=== PATIENT | male | born 1950 | race Caucasian/White ===

== ENCOUNTER → 2021-02-25 | Outpatient (CLI) | payer BC ==
[~2021-02-25] MED LIST: ADVIL200 MG PO; CEPHALEXIN500 M1 PO; MULTI VITAMINS1 TAB PO; MVI PO; NO HOME MEDICATIONS; PERCOCET 325 MG1 TA2 PO; PROSCAR 5MG5 MG PO; SAW PALMETTO; ULTRAM 50MG TAB50 MG PO
== END ==
LOC: ZCOL.LAB 17:01
DX: J34.89 Other specified disorders of nose and nasal sinuses (principal)

== ENCOUNTER → 2021-05-24 | Outpatient (CLI) | payer BC | LOC: COL.VAS 11:54 | DX: I08.0 Rheumatic disorders of both mitral and aortic valves (principal) ==

== ENCOUNTER 2023-11-29 09:20 | Emergency (ER) | payer MEDICARE, BC ==
[~2023-11-29] VITALS: Ht 177.8 cm; Wt 65.9 kg
[2023-11-29 09:23] VITALS: TEMP 98.4
[2023-11-29] MEDS ORDERED: NS 1,000 ML IV ONE (09:45)
[2023-11-29 10:45] LABS: EOS # 0.5 K/mm3 (0.0-0.7); EOS % 4.6 % (0.0-4.0); GRAN # 7.3 K/mm3 (1.4-6.5); GRAN % 75.4 % (42.2-75.2); HEMATOCRIT 38.5 % (42.0-52.0); LYMPH # 1.2 K/mm3 (1.2-3.4); LYMPH % 12.5 % (20.0-51.0); MEAN CELL VOLUME 80 fl (80.0-100.0); MEAN CORPUSCULAR HEMOGLOBIN 25 pg (27-31); MEAN CORPUSCULAR HGB CONC 31 g/dl (33.0-37.0); MEAN PLATELET VOLUME 9.3 fl (7.4-10.4); MONO # 0.7 K/mm3 (0.1-0.6); MONO % 7.1 % (1.7-9.3); PLATELET COUNT 349 K/mm3 (130-400); RED BLOOD COUNT 4.83 M/mm3 (4.20-5.60); REDCELL DISTRIBUTION WIDTH-CV 15.8 % (11.5-14.5)
[2023-11-29] MEDS ORDERED: FLOMAX 0.40.4 MG/CAP PO (10:45)
[2023-11-29 11:03] LABS: ALBUMIN 3.8 g/dL (3.4-4.8); BILIRUBIN,TOTAL 0.3 mg/dL (0.2-1.2); CALCIUM 9.7 mg/dL (8.4-10.2); CREATININE, serum 0.68 mg/dL (0.72-1.25); POTASSIUM 4.1 mEq/L (3.5-4.5); TOTAL PROTEIN 6.2 g/dl (6.2-8.1)
[2023-11-29 11:45] VITALS: BP 126/91; PULSE 66
== END 2023-11-29 11:59 | disposition home or self-care (01) ==
LOC: COL.ER 09:20
PROVIDERS: Personal Emergency Response Attendant
DX: R55 Syncope and collapse (principal)
CPT/HCPCS: J7030